=== PATIENT | female | born 1975 | race Caucasian/White ===

== ENCOUNTER 2016-11-09 20:51 | Emergency (ER) | payer OTHER ==
[~2016-11-09] VITALS: Ht 170.2 cm; Wt 112.3 kg
[2016-11-09] MEDS ORDERED: GABA-529 PO (21:04)
[2016-11-09] MEDS ORDERED: GABA-531 PO (21:04)
[2016-11-09] MEDS ORDERED: INSREG SQ (21:04)
[2016-11-09] MEDS ORDERED: METF500T4 PO (21:04)
[2016-11-09] MEDS ORDERED: HYDR-309 PO (21:04)
[2016-11-09 21:11] LABS: GLUCOSE,POINT OF CARE 163 MG/DL (70-110)
[2016-11-09 23:40] VITALS: BP 105/72
[2016-11-09] MEDS ORDERED: PROMETHAZINE HCL/CODEINE 6.25-10MG/5ML SYRUP UDCUP PO ONE (23:45)
== END 2016-11-09 23:51 | disposition home or self-care (01) ==
LOC: EMS 20:52
DX: J06.9 Acute upper respiratory infection, unspecified (principal); E11.9 Type 2 diabetes mellitus without complications; E78.00 Pure hypercholesterolemia, unspecified; I10 Essential (primary) hypertension; F17.210 Nicotine dependence, cigarettes, uncomplicated
CPT/HCPCS: 82962; 99283

== ENCOUNTER 2019-02-12 07:29 | Emergency (ER) | payer OTHER ==
[~2019-02-12] VITALS: Ht 170.2 cm; Wt 104.5 kg
[~2019-02-12 07:29] MED LIST: GABA-529 PO; GABA-531 PO; HYDR-309 PO; INSREG SQ; METF-960 PO
[2019-02-12 07:59] LABS: GLUCOSE,POINT OF CARE 132 MG/DL (70-110)
[2019-02-12] MEDS ORDERED: PROPARACAINE HCL 0.5% 15 ML OPHTHALMIC SOLUTION OU ONE (09:15)
[2019-02-12] MEDS ORDERED: FLUORESCEIN SODIUM 1 MG STRIP OU ONE (09:15)
[2019-02-12] MEDS ORDERED: NEOMYCIN/BACITRACIN/POLYMYXIN/HYDROCORT 3.5 GM OPHTHALMIC OINTMENT OD ONE ×2 (09:45→10:00)
[2019-02-12] MEDS ORDERED: NEOMYCIN/POLYMYXIN B/DEXAMETH 5 ML OPHTHALMIC SUSPENSION OD ONE (10:00)
[2019-02-12 10:26] VITALS: BP 126/61
== END 2019-02-12 10:27 | disposition home or self-care (01) ==
LOC: EMS 07:31
DX: H10.9 Unspecified conjunctivitis (principal); I10 Essential (primary) hypertension; E11.9 Type 2 diabetes mellitus without complications; E78.00 Pure hypercholesterolemia, unspecified; F17.210 Nicotine dependence, cigarettes, uncomplicated